=== PATIENT | male | born 1965 | race Hispanic/Latino ===

== ENCOUNTER 2017-02-15 16:08 | Emergency (ER) | payer SELFPAY ==
[~2017-02-15] VITALS: Ht 175.3 cm; Wt 97.0 kg
[2017-02-15] MEDS ORDERED: CLINDAMYCIN300 M1 PO (16:47)
[2017-02-15] MEDS ORDERED: LISINOPRIL10 MG PO (16:47)
[2017-02-15 17:08] VITALS: BP 189/96
== END 2017-02-15 17:17 | disposition home or self-care (01) | DRG 603 ==
LOC: ED 16:08
DX: L02.211 Cutaneous abscess of abdominal wall (principal)